=== PATIENT | male | born 1970 | race African-American/Black ===

== ENCOUNTER 2017-02-24 12:10 | Outpatient (CLI) | payer MEDICARE, OTHER ==
[2017-02-24 12:41] LABS: #Basophils 0.2 thou/uL (0.0-0.2); #Eosinphils 0.2 thou/uL (0.0-0.7); #Lymphocytes 2.7 thou/uL (1.20-3.40); #Monocytes 0.6 thou/uL (0.11-0.59); #Neutrophils 4.1 thou/uL (1.40-6.50); %Basophils 2.3 % (0.0-1.0); %Eosinophils 3.2 % (0.0-10.0); %Lymphocytes 34.7 % (21.0-51.0); %Monocytes 7.3 % (0.0-10.0); %Neutrophils 52.5 % (42.0-75.0); Hemoglobin 14.8 g/dL (14.0-18.0); Mean Corpuscular Hemoglobin 30.2 pg (27.0-31.0); Mean Corpuscular Volume 91.5 fl (80.0-94.0); Mean Platelet Volume 7.7 fL (7.4-10.4); Platelet Count 332 thou/uL (130-400); White Blood Cell (WBC) Count 7.8 thou/uL (4.8-10.8)
[2017-02-24 12:49] LABS: Hemoglobin A1c 5.5 % (4.0-6.0)
[2017-02-24 12:51] LABS: ALT (SGPT) 30 U/L (8-55); AST (SGOT) 24 U/L (5-34); Albumin 4.2 g/dL (3.5-5.0); Alkaline Phosphatase 92 U/L (40-150); Anion Gap 12 mmol/L (10-20); BUN (Urea Nitrogen) 19 mg/dL (8.9-20.6); Bilirubin, Total 0.3 mg/dL (0.2-1.2); Calc. Creatinine Clearance 0 mL/min (70-130); Calcium 9.7 mg/dL (7.8-10.44); Carbon Dioxide 27 mmol/L (22-29); Cardiac Risk 3.2 (Less than 4.5); Chloride 104 mmol/L (98-107); Cholesterol 175 mg/dl (< 200 Desired); Estimated GFR-MDRD 80; Globulin 3.4 g/dL (2.4-3.5); Glucose 134 mg/dL (70-105); HDL Cholesterol 54 mg/dL (>60 Neg Risk); LDL Cholesterol, Calculated 94 mg/dL; Potassium 4.4 mmol/L (3.5-5.1); Protein, Total 7.6 g/dL (6.0-8.3); Sodium 139 mmol/L (136-145); Triglycerides 134 mg/dL (Less than 150)
[2017-02-24 13:29] LABS: Free T4 (Free Thyroxine) 0.8 ng/dL (0.70-1.48); Thyroid Stimulating Hormone 0.2107 uIU/mL (0.35-4.94)
[2017-02-24 18:28] LABS: Creatinine, Urine 98.06 mg/dL (63-166); Microalbumin Urine Less than 1.0 mg/dL (0.5-50.0); Microalbumin/Creat Ratio 10.2 mg/g (Less than 30)
== END 2017-02-24 12:11 | disposition home or self-care (01) ==
LOC: MADLABBHPM 12:10
PROVIDERS: ATTEND Family Medicine
DX: E11.9 Type 2 diabetes mellitus without complications (principal)
CPT/HCPCS: 36415; 80053; 80061; 82043; 83036; 84439; 84443; 85025

== ENCOUNTER 2017-05-13 14:35 | Outpatient (CLI) | payer MEDICARE, OTHER ==
--- NOTE | 2017-05-13 15:15 | RAD ---
LEFT WRIST THREE VIEWS: History: Fall with injury. FINDINGS: Carpals appear normally aligned. No evidence of carpal injury. There is a oblique fracture involving the base of the fifth metacarpal which appears nondisplaced. IMPRESSION: Fracture proximal fifth metacarpal. POS: [facility]
--- NOTE | 2017-05-13 18:00 | RAD ---
LEFT HAND: 05/13/17 Three views. HISTORY: There is an oblique nondisplaced fracture involving the proximal fifth metacarpal. No other fracture identified. There appears to be a flexion deformity involving the PIP joint of the fifth finger. Recommend clini priti correlation regarding this deformity. IMPRESSION: 1. Fracture proximal fifth metacarpal. 2. Flexion deformity PIP joint of fifth digit. POS: [facility]
== END 2017-05-13 14:36 | disposition home or self-care (01) ==
LOC: MADLABBHPM 14:35
PROVIDERS: ATTEND Family Medicine
DX: Z23 Encounter for immunization (principal); S69.90XA Unspecified injury of unspecified wrist, hand and finger(s), initial encounter; M25.532 Pain in left wrist
CPT/HCPCS: 36415; 84443